=== PATIENT | female | born 1985 | race American Indian/Alaskan Native ===

== ENCOUNTER 2020-11-04 08:47 | Emergency (ER) | payer OTHER ==
[2020-11-04 09:26] VITALS: BP 136/87
[2020-11-04] MEDS ORDERED: diphenhydrAMINE 25 MG CAP PO ONE (09:33)
[2020-11-04] MEDS ORDERED: dexAMETHasone 20 MG/5 ML VIAL IM ONE (10:35)
[2020-11-04] MEDS ORDERED: FAMOTIDINE 20 MG TAB PO ONE (10:35)
--- NOTE | 2020-11-04 10:43 | Emergency Department Report ---
ED Allergic Reaction HPI - General Chief complaint: Allergic Reaction Stated complaint: ALLERGIC REACTION Time Seen by Provider: 11/04/20 10:34 Source: patient Mode of arrival: Ambulatory Limitations: No Limitations - History of Present Illness Initial Comments: Patient is a 35-year-old female presents emergency room complaints of allergic reaction that occurred last night. She states that she took some Robitussin and then approximately 40 minutes later broke out in a rash and began itching. She states that she feels like she has some mild swelling to her upper lip. She states that she took Benadryl around 3 AM this morning. She denies any difficulty swallowing, sensation of throat closing, throat swelling, difficulty breathing. No past medical history. Allergy to penicillin. - Related Data Previous Rx's Medication Instructions Recorded Last Taken Type Famotidine [Pepcid] 40 mg PO QHS #10 tablet 11/04/20 Unknown Rx Loratadine 10 mg PO DAILY #10 tablet 11/04/20 Unknown Rx Prednisone [predniSONE 10 mg 10 mg PO .TAPER #1 tab.ds.pk 11/04/20 Unknown Rx (6-Day Pack, 21 Tabs)] Allergies Allergy/AdvReac Type Severity Reaction Status Date / Time acetaminophen [From NyQuil] Allergy Hives Verified 11/04/20 09:21 dextromethorphan Allergy Hives Verified 11/04/20 09:21 [From NyQuil] doxylamine [From NyQuil] Allergy Hives Verified 11/04/20 09:21 guaifenesin [From Robitussin] Allergy Hives Verified 11/04/20 09:21 Penicillins Allergy Unknown Verified 11/04/20 09:20 pseudoephedrine [From NyQuil] Allergy Hives Verified 11/04/20 09:21 ED Review of Systems ROS: Stated complaint: ALLERGIC REACTION Other details as noted in HPI Comment: All other systems reviewed and negative ED Past Medical Hx - Past Medical History Previous Medical History?: No - Surgical History Past Surgical History?: Yes Additional Surgical History: - Medications Home Medications: Home Medications Medication Instructions Recorded Confirmed Last Taken Type Famotidine [Pepcid] 40 mg PO QHS #10 tablet 11/04/20 Unknown Rx Loratadine 10 mg PO DAILY #10 tablet 11/04/20 Unknown Rx Prednisone [predniSONE 10 mg 10 mg PO .TAPER #1 tab.ds.pk 11/04/20 Unknown Rx (6-Day Pack, 21 Tabs)] ED Physical Exam - General Limitations: No Limitations General appearance: alert, in no apparent distress - Head Head exam: Present: atraumatic, normocephalic - ENT ENT exam: Present: mucous membranes moist, other (mild upper lip edema, no tongue edema, no uvular edema, uvula is midline, no muffled voice, no difficulty swallowing) - Respiratory Respiratory exam: Present: normal lung sounds bilaterally. Absent: respiratory distress, wheezes, rales, rhonchi, stridor, chest wall tenderness, accessory muscle use, decreased breath sounds, prolonged expiratory - Cardiovascular Cardiovascular Exam: Present: regular rate, normal rhythm, normal heart sounds. Absent: systolic murmur, diastolic murmur, rubs, gallop - Neurological Exam Neurological exam: Present: alert, oriented X3 - Psychiatric Psychiatric exam: Present: normal affect, normal mood - Skin Skin exam: Present: warm, dry, urticaria (large patches of urticaria diffusely) ED Course Vital Signs 11/04/20 09:24 Temperature 98.5 F Pulse Rate 78 Respiratory 18 Rate Blood Pressure 136/87 [Right] O2 Sat by Pulse 99 Oximetry ED Medical Decision Making - Medical Decision Making Patient is a 35-year-old female presents emergency room complaints of allergic reaction that occurred last night. She states that she took some Robitussin and then approximately 40 minutes later broke out in a rash and began itching. She states that she feels like she has some mild swelling to her upper lip. She states that she took Benadryl around 3 AM this morning. She denies any difficulty swallowing, sensation of throat closing, throat swelling, difficulty breathing. No past medical history. Allergy to penicillin. Vitals are stable. On exam: large patches of urticaria diffusely, mild upper lip edema, no tongue edema, no uvular edema, uvula is midline, no muffled voice, no difficulty swallowing. No signs of anaphylaxis. Patient given medications while in the emergency department and observed. She states her symptoms are improving. She states that the itching has resolved. She denies any difficulty breathing, difficulty swallowing, sensation of throat closing. Patient given prescription for medications. Advised patient Please take medication as prescribed. Follow- up with a primary care doctor. Return to emergency room immediately for any new or worsening symptoms. Critical care attestation.: If time is entered above; I have spent that time in minutes in the direct care of this critically ill patient, excluding procedure time. ED Disposition Clinical Impression: Allergic reaction Qualifiers: Encounter type: initial encounter Qualified Code(s): T78.40XA - Allergy, unspecified, initial encounter Disposition: HOME / SELF CARE / HOMELESS Is pt being admited?: No Does the pt Need Aspirin: No Condition: Stable Instructions: Allergies, Adult, [id number] Additional Instructions: Please take medication as prescribed. Follow-up with a primary care doctor. Return to emergency room immediately for any new or worsening symptoms. Prescriptions: Famotidine [Pepcid] 40 mg PO QHS #10 tablet Loratadine 10 mg PO DAILY #10 tablet Prednisone [predniSONE 10 mg (6-Day Pack, 21 Tabs)] 10 mg PO .TAPER #1 tab.ds.pk Referrals: RITU TOMAS MD [Staff Physician] - 3-5 Days ARELIS GÓMEZ MD [Staff Physician] - 3-5 Days Time of Disposition: 12:10 Print Language: [place]
== END 2020-11-04 14:30 | disposition home or self-care (01) ==
LOC: ED 08:47
DX: T78.40XA Allergy, unspecified, initial encounter (principal); Z88.6 Allergy status to analgesic agent; Z88.0 Allergy status to penicillin; Z88.8 Allergy status to other drugs, medicaments and biological substances
CPT/HCPCS: 96372; 99282; J1100